=== PATIENT | male | born 1980 | race Caucasian/White ===

== ENCOUNTER 2019-01-25 10:28 | Emergency (ER) | payer OTHER ==
[~2019-01-25] VITALS: Ht 175.3 cm; Wt 92.7 kg
--- NOTE | 2019-01-25 11:05 | PHYS DOC ---
Past History Past Medical History: GERD, Hypertension, Hypothyroid Past Surgical History: Other Additional Past Surgical Histo: back surgery Alcohol Use: None Drug Use: None Adult General Chief Complaint Chief Complaint: ABDOMINAL PAIN HPI HPI Patient is a 38-year-old male who presents to the emergency department for evaluation. He states that this morning at about 6 AM he was lifting his desk up, when he experienced pain in his right groin, which has persisted, and he reports is severe. Movement and palpation of the affected area worsen his pain. He denies any flank pain, nausea, vomiting, diarrhea, or difficulty urinating. There are no alleviating factors to his symptoms. Review of Systems Review of Systems Constitutional: Denies fever or chills [] Eyes: Denies change in visual acuity, redness, or eye pain [] HENT: Denies nasal congestion or sore throat [] Respiratory: Denies cough or shortness of breath [] Cardiovascular: No not addressed in HPI [] GI: Denies abdominal pain, nausea, vomiting, bloody stools or diarrhea [] : Denies dysuria or hematuria and denies testicular pain. [] Musculoskeletal: Denies back pain or joint pain [] Integument: Denies rash or skin lesions [] Neurologic: Denies headache, focal weakness or sensory changes [] Endocrine: Denies polyuria or polydipsia [] All other systems were reviewed and found to be within normal limits, except as documented in this note. Allergies Allergies Allergies Coded Allergies Type Severity Reaction Last Updated Verified No Known Drug Allergies 01/25/19 No Physical Exam Physical Exam PHYSICAL EXAM: CONSTITUTIONAL: Well developed, well nourished HEAD: normocephalic, atraumatic EENT: PERRL, EOMI. Conjunctivae normal color, sclerae non-icteric; moist mucous membranes. NECK: Supple, non-tender; no meningismus. LUNGS: Lungs CTA, breathing even and unlabored. Normal air movement. HEART: Regular rate and rhythm, no murmur CHEST: No deformity; non-tender ABDOMEN: The abdomen is soft, there is some voluntary guarding which limits the exam, but the abdomen itself is generally non-tender, no masses or bruits. EXTREM: Normal ROM; no deformity, no calf tenderness. Normal pulses palpable in all extremities. There is no pedal edema. SKIN: No rash; no diaphoresis NEURO: Alert; normal speech and cognition; CN's grossly intact; strength grossly intact without focal deficit. BACK: No CVA TTP. GENITOURINARY: There is no testicular tenderness to palpation. There is no palpable mass in the right inguinal canal. However, just anterior to the right inguinal triangle, there is a palpable bulge with increased intra-abdominal pressure Current Patient Data Vital Signs Vital Signs Date Time Temp Pulse Resp B/P (MAP) Pulse Ox O2 Delivery O2 Flow Rate FiO2 01/25/19 10:34 97.6 86 20 Room Air Lab Results Laboratory Tests Test 01/25/19 11:07 White Blood Count 7.4 x10^3/uL Red Blood Count 4.98 x10^6/uL Hemoglobin 16.3 g/dL Hematocrit 47.0 % Mean Corpuscular Volume 94 fL Mean Corpuscular Hemoglobin 33 pg Mean Corpuscular Hemoglobin Concent 35 g/dL Red Cell Distribution Width 13.4 % Platelet Count 235 x10^3/uL Neutrophils (%) (Auto) 75 % Lymphocytes (%) (Auto) 15 % Monocytes (%) (Auto) 7 % Eosinophils (%) (Auto) 2 % Basophils (%) (Auto) 1 % Neutrophils # (Auto) 5.5 x10^3uL Lymphocytes # (Auto) 1.1 x10^3/uL Monocytes # (Auto) 0.5 x10^3/uL Eosinophils # (Auto) 0.2 x10^3/uL Basophils # (Auto) 0.0 x10^3/uL Sodium Level 136 mmol/L Potassium Level 4.2 mmol/L Chloride Level 101 mmol/L Carbon Dioxide Level 27 mmol/L Anion Gap 8 Blood Urea Nitrogen 17 mg/dL Creatinine 1.0 mg/dL Estimated GFR (Cockcroft-Gault) 83.6 BUN/Creatinine Ratio 17 Glucose Level 92 mg/dL Calcium Level 9.0 mg/dL Total Bilirubin 1.0 mg/dL Aspartate Amino Transf (AST/SGOT) 34 U/L Alanine Aminotransferase (ALT/SGPT) 50 U/L Alkaline Phosphatase 94 U/L Total Protein 7.7 g/dL Albumin 4.2 g/dL Albumin/Globulin Ratio 1.2 Lipase 120 U/L Current Medications Medications (Trade) Dose Ordered Sig/Cr Route PRN Reason Start Time Stop Time Status Last Admin Dose Admin Morphine Sulfate (Morphine 4mg Syringe) 4 mg PRN Q15MIN PRN IV/SQ PAIN GREATER THAN 3/10 01/25/19 11:00 01/26/19 10:59 01/25/19 12:07 Iohexol (Omnipaque 300 Mg/ml) 75 ml 1X ONCE IV 01/25/19 11:15 01/25/19 11:16 DC 01/25/19 11:27 Info (Do NOT chart on this entry -- for MONITORING) 1 each PRN DAILY PRN MC SEE COMMENTS 01/25/19 11:30 01/27/19 11:29 EKG EKG [] Radiology/Procedures Radiology/Procedures PROCEDURE: CT ABD PELV W/ IV CONTRST ONLY CT ABD PELV W/ IV CONTRST ONLY History: Right inguinal pain. Possible hernia. Technique: After the administration of intravenous contrast, CT imaging was performed of the abdomen and pelvis. Multiplanar images are reviewed. Exposure: One or more of the following individualized dose reduction techniques were utilized for this examination: 1. Automated exposure control 2. Adjustment of the mA and/or kV according to patient size 3. Use of iterative reconstruction technique. Comparison: None Findings: Lower chest: No consolidation or pleural effusion. Abdomen and pelvis: The liver, spleen, adrenal glands, pancreas and gallbladder are unremarkable. Normal appearance of the kidneys. No hydronephrosis. No renal calculi. Normal appendix. No evidence of bowel obstruction. No pathologic lymphadenopathy. No ascites. Right inguinal fat containing hernia. Fascial defect measures 9 mm. Small bowel loop marginates the inguinal opening without herniation. Pelvic contents are otherwise unremarkable. Bones: Bilateral hip degenerative changes. Impression: 1. Small right fat-containing inguinal hernia. 2. Bilateral hip DJD, right greater left [] Course & Med Decision Making Course & Med Decision Making Pertinent Labs and Imaging studies reviewed. (See chart for details) []12:40 PM: I discussed test results with the patient, the need for surgical follow-up, and return precautions. Dragon Disclaimer Dragon Disclaimer This electronic medical record was generated, in whole or in part, using a voice recognition dictation system. Departure Departure: Impression: Primary Impression: Inguinal hernia Disposition: HOME, SELF-CARE Condition: STABLE Referrals: ELENA RODRIGUEZ MD Patient Instructions: Inguinal Hernia, Adult Scripts Diclofenac Sodium (DICLOFENAC SODIUM) 50 Mg Tablet.dr 1 TAB PO BID for pain, #20 TAB 1 Refill Prov: MARIFER HACKETT MD 01/25/19 MARIFER HACKETT MD Jan 25, 2019 11:05
[2019-01-25] MEDS: MORPHINE SULFATE 4 MG/ML DISP.SYRIN. IV/SQ PRN ×2 (11:11→12:07)
[2019-01-25] MEDS ORDERED: IOHEXOL 300 MG/ML 75 ML VIAL. IV ONE (11:15)
[2019-01-25 11:27] LABS: BASO % 1 % (0-3); EOS # 0.2 x10^3/uL (0.0-0.7); EOS % 2 % (0-3); HEMOGLOBIN 16.3 g/dL (13.0-17.5); LYMPH # 1.1 x10^3/uL (1.0-4.8); LYMPH % 15 % (24-48); MEAN CORPUSCULAR HEMOGLOBIN 33 pg (25-35); MEAN CORPUSCULAR HGB CONC 35 g/dL (31-37); MEAN CORPUSCULAR VOLUME 94 fL (79-100); MONO # 0.5 x10^3/uL (0.0-1.1); MONO % 7 % (0-9); NEUT # 5.5 x10^3uL (1.8-7.7); NEUT % 75 % (31-73); PLATELET COUNT 235 x10^3/uL (140-400); RED BLOOD COUNT 4.98 x10^6/uL (4.30-5.70); RED CELL DISTRIBUTION WIDTH 13.4 % (11.5-14.5); WHITE BLOOD COUNT 7.4 x10^3/uL (4.0-11.0)
[2019-01-25] MEDS ORDERED: CONTRAST GIVEN MC PRN (11:30)
[2019-01-25 11:37] LABS: ALBUMIN 4.2 g/dL (3.4-5.0); ALBUMIN/GLOBULIN RATIO 1.2 (1.0-1.7); GFR 83.6; POTASSIUM 4.2 mmol/L (3.5-5.1); TOTAL PROTEIN 7.7 g/dL (6.4-8.2)
--- NOTE | 2019-01-25 12:22 | RAD ---
CT ABD PELV W/ IV CONTRST ONLY History: Right inguinal pain. Possible hernia. Technique: After the administration of intravenous contrast, CT imaging was performed of the abdomen and pelvis. Multiplanar images are reviewed. Exposure: One or more of the following individualized dose reduction techniques were utilized for this examination: 1. Automated exposure control 2. Adjustment of the mA and/or kV according to patient size 3. Use of iterative reconstruction technique. Comparison: None Findings: Lower chest: No consolidation or pleural effusion. Abdomen and pelvis: The liver, spleen, adrenal glands, pancreas and gallbladder are unremarkable. Normal appearance of the kidneys. No hydronephrosis. No renal calculi. Normal appendix. No evidence of bowel obstruction. No pathologic lymphadenopathy. No ascites. Right inguinal fat containing hernia. Fascial defect measures 9 mm. Small bowel loop marginates the inguinal opening without herniation. Pelvic contents are otherwise unremarkable. Bones: Bilateral hip degenerative changes. Impression: 1. Small right fat-containing inguinal hernia. 2. Bilateral hip DJD, right greater left Electronically signed by: Anish Miranda DO (01/25/2019 12:18 PM) [id number]
[2019-01-25 12:44] LABS: BACTERIA,URINE 0 /HPF (0-FEW); BILIRUBIN,URINE NEG (NEG); CLARITY,URINE CLEAR; COLOR,URINE YELLOW; GLUCOSE,URINE NEG (NEG); NITRITE,URINE NEG (NEG); RBC,URINE RARE /HPF (0-2); SQUAMOUS EPITHELIAL CELL,UR OCC /LPF; UROBILINOGEN,URINE 0.2 mg/dL (0.2 mg/dL); WBC,URINE OCC /HPF (0-4)
[2019-01-25] MEDS ORDERED: DICL50TA4 PO (12:46)
[2019-01-25 12:54] VITALS: BP 146/76
== END 2019-01-25 13:02 | disposition home or self-care (01) ==
LOC: ER 10:28 → EEVIPCON 10:28 → ER 13:02
DX: K40.90 Unilateral inguinal hernia, without obstruction or gangrene, not specified as recurrent (principal); M16.0 Bilateral primary osteoarthritis of hip; K21.9 Gastro-esophageal reflux disease without esophagitis; I10 Essential (primary) hypertension; E03.9 Hypothyroidism, unspecified
CPT/HCPCS: 36415; 74177; 80053; 81001; 83690; 85025; 96372; 96374; 99285; J2270; Q9967